=== PATIENT | male | born 1975 | race Caucasian/White ===

== ENCOUNTER 2016-12-05 13:41 | Emergency (ER) | payer OTHER | END 2016-12-05 16:50 | disposition home or self-care (01) | LOC: ER 13:41 | DX: K85.90 Acute pancreatitis without necrosis or infection, unspecified (principal); F17.210 Nicotine dependence, cigarettes, uncomplicated | CPT/HCPCS: 36415; 96361; 96374; 96375 ==

== ENCOUNTER 2016-12-13 14:10 | Emergency (ER) | payer OTHER | END 2016-12-13 17:15 | disposition home or self-care (01) | LOC: ER 14:10 | DX: R10.11 Right upper quadrant pain (principal); R11.0 Nausea; K21.9 Gastro-esophageal reflux disease without esophagitis; E11.65 Type 2 diabetes mellitus with hyperglycemia; F17.210 Nicotine dependence, cigarettes, uncomplicated | CPT/HCPCS: 36415; 96361; 96374; 96375 ==

== ENCOUNTER 2016-12-13 22:50 | Emergency (ER) | payer OTHER | END 2016-12-14 01:00 | disposition home or self-care (01) | LOC: ER 22:50 | DX: R10.11 Right upper quadrant pain (principal); R11.0 Nausea; E87.6 Hypokalemia; E11.65 Type 2 diabetes mellitus with hyperglycemia; F17.210 Nicotine dependence, cigarettes, uncomplicated; Z79.84 Long term (current) use of oral hypoglycemic drugs | CPT/HCPCS: 36415; 96361; 96374; 96375 ==

== ENCOUNTER 2016-12-16 22:00 | Emergency (ER) | payer OTHER | END 2016-12-17 00:11 | disposition critical access hospital (66) | LOC: ER 22:00 | DX: E11.65 Type 2 diabetes mellitus with hyperglycemia (principal); R10.11 Right upper quadrant pain; R10.13 Epigastric pain; R11.0 Nausea; F17.210 Nicotine dependence, cigarettes, uncomplicated; Z79.84 Long term (current) use of oral hypoglycemic drugs | CPT/HCPCS: 96361; 96374; 96375 ==

== ENCOUNTER 2016-12-16 22:00 | Observation (INO) | payer OTHER | END 2016-12-17 07:15 | disposition left against medical advice (07) | LOC: ER 22:00 → MED 12-17 00:12 | PROVIDERS: ADMIT Internal Medicine | DX: E11.65 Type 2 diabetes mellitus with hyperglycemia (principal); Z53.21 Procedure and treatment not carried out due to patient leaving prior to being seen by health care provider; Z79.84 Long term (current) use of oral hypoglycemic drugs; Z79.899 Other long term (current) drug therapy; F17.210 Nicotine dependence, cigarettes, uncomplicated; R10.13 Epigastric pain; R10.11 Right upper quadrant pain | CPT/HCPCS: 36415; 96361; 96374; 96375; 96376; G0378 ==

== ENCOUNTER 2016-12-19 15:08 | Emergency (ER) | payer OTHER | END 2016-12-19 18:00 | disposition home or self-care (01) | LOC: ER 15:08 | DX: K85.90 Acute pancreatitis without necrosis or infection, unspecified (principal); E87.6 Hypokalemia; E11.9 Type 2 diabetes mellitus without complications; F17.210 Nicotine dependence, cigarettes, uncomplicated; Z79.84 Long term (current) use of oral hypoglycemic drugs; Z91.041 Radiographic dye allergy status | CPT/HCPCS: 36415; 96361; 96374; 96375 ==

== ENCOUNTER 2016-12-22 22:36 | Emergency (ER) | payer OTHER | END 2016-12-22 23:50 | disposition left against medical advice (07) | LOC: ER 22:36 | DX: E11.65 Type 2 diabetes mellitus with hyperglycemia (principal); R10.13 Epigastric pain; R11.0 Nausea; F17.210 Nicotine dependence, cigarettes, uncomplicated; Z79.84 Long term (current) use of oral hypoglycemic drugs; Z91.041 Radiographic dye allergy status | CPT/HCPCS: 36415; 96361; 96374 ==

== ENCOUNTER 2017-01-09 20:43 | Emergency (ER) | payer OTHER | END 2017-01-09 23:00 | disposition home or self-care (01) | LOC: ER 20:43 | DX: E11.65 Type 2 diabetes mellitus with hyperglycemia (principal); R10.11 Right upper quadrant pain; R11.0 Nausea; E11.9 Type 2 diabetes mellitus without complications; F17.210 Nicotine dependence, cigarettes, uncomplicated; Z79.84 Long term (current) use of oral hypoglycemic drugs; Z91.041 Radiographic dye allergy status; Z90.49 Acquired absence of other specified parts of digestive tract | CPT/HCPCS: 36415; 96361; 96374; 96375 ==

== ENCOUNTER 2017-02-24 18:32 | Emergency (ER) | payer OTHER | END 2017-02-24 19:06 | disposition left against medical advice (07) | LOC: ER 18:32 | DX: R10.11 Right upper quadrant pain (principal); R11.2 Nausea with vomiting, unspecified; R05 Cough; R35.8 Other polyuria; E11.65 Type 2 diabetes mellitus with hyperglycemia; F17.210 Nicotine dependence, cigarettes, uncomplicated; Z79.84 Long term (current) use of oral hypoglycemic drugs; Z91.041 Radiographic dye allergy status | CPT/HCPCS: 36415; 96374; 96375; J1885; J2550 ==